=== PATIENT | male | born 1975 | race American Indian/Alaskan Native ===

== ENCOUNTER 2017-04-10 15:48 | Emergency (ER) | payer OTHER ==
[2017-04-10] MEDS ORDERED: CATAPRES PO ONE (18:57)
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
[2017-04-10 21:29] VITALS: BP 142/97
== END 2017-04-10 20:20 | disposition home or self-care (01) ==
LOC: ED 15:48
DX: S39.012A Strain of muscle, fascia and tendon of lower back, initial encounter (principal); M79.644 Pain in right finger(s); I10 Essential (primary) hypertension; V43.62XA Car passenger injured in collision with other type car in traffic accident, initial encounter; Y93.89 Activity, other specified; Y92.89 Other specified places as the place of occurrence of the external cause; Y99.8 Other external cause status
CPT/HCPCS: 72100; 99283